=== PATIENT | female | born 1965 | race Caucasian/White ===

== ENCOUNTER 2017-05-22 05:35 | Day surgery (SDC) | payer OTHER ==
[~2017-05-22] VITALS: Ht 162.6 cm; Wt 90.7 kg
[~2017-05-22 05:35] MED LIST: ADVIL200 MG PO; ALIVE WOMEN'S1 EACH PO; BUPROPION XL300 MG PO; BUTALB-ACETAMI1 EAC2 PO; BUTALB-ACETAMI1 EACH PO; CALCIUM600 MG PO; CAMRESE 0.15-01 EACH PO; CYCLOBENZAPRINE10 MG PO; ENOXAPARIN100 MG/1 M SUB-Q; ESCITALOPRAM OXA5 MG PO; FLUTICASONE P15.8 ML NAS; IBUPROFEN800 MG PO; NORCO 5-325 TA1 EACH PO; PSEUDOEPHEDRINE30 MG PO; ST. JOHN'S WOR300 MG PO; TRIAMCINOLONE A15 G3 TOP; VITAMIN B-12100 MCG PO; VITAMIN B122500 MCG PO; VITAMIN D2000 UNI1 PO; WARFARIN SODIUM5 MG PO; WELLBUTRIN XL300 MG PO
--- NOTE | 2017-05-22 08:14 | NUR ---
05/22/17 0814 Kathrine Ware 0808 ALERT AND TEARFUL. DENIES PAIN OR NAUSEA. RESP EVEN UNLABORED.
--- NOTE | 2017-05-22 08:44 | NUR ---
PT IS BACK TO DS FROM PACU. PT REPORTS FEELING HORRIBLE, REPORTING THE PAIN IS VERY UNCOMFORTALE, SHE STATES SHE HAS A HEADACHE. PT HAS WATER AND CRACKERS AT THE BEDSIDE. CALL LIGHT WITHIN REACH. NO OTHER C/O'S AT THIS TIME. WILL REASSESS WITHIN THE HOUR.
--- NOTE | 2017-05-22 08:45 | NUR ---
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
[2017-05-22] MEDS ORDERED: PERCOCET 5-3251 EACH PO (09:05)
[2017-05-22] MEDS ORDERED: ZOFRAN ODT4 MG PO (09:05)
--- NOTE | 2017-05-22 09:38 | NUR ---
PT STILL C/O HEADACHE AND ABDOMEN PAIN. PT ENCOURAGED TO TAKE A NAP. PT GIVEN PAIN MEDICATION AND ZOFRAN. FAMILY IS AT THE BEDSIDE. NO OTHER C/O'S AT THIS TIME. CALL LIGHT WITHIN THE REACH. WILL REASSESS WITHIN THE HOUR.
--- NOTE | 2017-05-22 10:34 | NUR ---
MET WITH PT'S VANITA. HE WAS WAITING OUT IN THE HALLWAY WITH QUITE A FEW FAMILY AND FRIENDS. HE WAS SOMEWHAT ANXIOUS, WAITING FOR THE DR. I EXPLAINED HOW THE PROCESS WORKS, HE THANKED ME. HE CONTINUED TO PACE THE OCONNELL, AND THEN TOLD ME SHE IS BACK IN HER ROOM. HE SEEMED MORE RELIEVED. I WILL CONTINUE TO FOLLOW
--- NOTE | 2017-05-22 11:00 | NUR ---
SWAPNIL 1035: PT UP OOB TO BATHROOM WITH STANDBY ASSIST. PT REPORTS A SLIGHT HEADACHE THAT COMES AND GOES. SHE STATES SHE IS A LITTLE NAUSEOUS, BUT WOULD REALLY LIKE TO GO HOME. PT HAS OTHERWISE MET DISCHARGE CRITIERIA. DC INSTRUCTIONS ARE GIVEN AND ALL QUESTIONS ARE ASKED AN ASWERED. PT IS GIVEN A FRESH PERIPAD AND ALLOWED TO GET DRESSED. SHE IS WHEELCHAIRED OUT TO HER CAR.
--- NOTE | 2017-05-22 16:41 | OR ---
[facility] [address], [place] [address] Signed DATE OF PROCEDURE: 05/22/17 PREOPERATIVE DIAGNOSES: Postmenopausal bleeding and history of abnormal endometrium as well as history of uterine fibroids. POSTOPERATIVE DIAGNOSES: Postmenopausal bleeding and history of abnormal endometrium as well as history of uterine fibroids. PROCEDURE: Hysteroscopy, dilation and curettage with NovaSure ablation. SURGEON: Fina Shah MD. ANESTHESIA: General endotracheal with pharyngeal mask per Wilner Cooper CRNA as well as paracervical block with 10 mL of 1% plain Lidocaine. IV FLUIDS: In 1500 mL of Crystalloid. ESTIMATED BLOOD LOSS: 25 mL. URINE OUTPUT: 50 mL per straight cath. FINDINGS: Mildly enlarged uterus with fluffy-appearing endometrium. No polyps visualized. PATHOLOGY: Endometrial curettings. COMPLICATIONS: No complications. PROCEDURE TECHNIQUE: The patient was taken to the operating room with IV fluids running. She was placed on the operating table in supine position, underwent rapid sequence intubation and IV sedation with pharyngeal mask/general endotracheal anesthesia. The patient was then repositioned into dorsal lithotomy position with Darek stirrups. Exam under anesthesia was performed. Uterus was difficult to palpate due to body habitus, but no obvious masses or lesions. The patient was then prepped and draped in normal sterile fashion and a weighted speculum was placed into the vagina. The patient was placed in Trendelenburg position and a single-tooth tenaculum placed on the anterior lip of the cervix. The uterus then sounded to approximately 9 cm and serial dilation was performed. Hysteroscope was then Electronically Signed By: FINA SHAH MD 05/22/17 1641 PATIENT NAME: LUCA CASTAÑEDA OPERATIVE REPORT DATE OF : 65 PHYSICIAN: FINA SHAH MD REPORT #: [id number] REPORT IS CONFIDENTIAL AND NOT TO BE RELEASED WITHOUT AUTHORIZATION [facility] [address] [place] [id number] Signed placed easily and visualization of the uterine cavity was achieved without any problem. Findings were again mildly fluffy-appearing endometrium, no obvious polyps. The hysteroscope was then removed and curettage was performed. Endometrial curettings were sent to Pathology. The NovaSure wand was then placed after again sounding the uterus and the cervix was approximately 2 cm in length, the uterine cavity approximately 7 cm with the uterine cavity after placing the NovaSure wand was 3.5 cm and the procedure itself took approximately 90 seconds. There was no complication. The NovaSure wand appeared charred as would be appropriate and it was removed easily. The single-tooth tenaculum was removed and cervix was hemostatic. The patient was extubated, awakened and went to recovery room in stable condition. Sponge and instrument counts were all correct. Again, there were no complications. MD NATHAN Finch/Davida /[id number] cc: Ese Marks PA-C Electronically Signed By: FINA SHAH MD 05/22/17 1641 PATIENT NAME: LUCA CASTAÑEDA OPERATIVE REPORT DATE OF : 65 PHYSICIAN: FINA SHAH MD REPORT #: [id number] REPORT IS CONFIDENTIAL AND NOT TO BE RELEASED WITHOUT AUTHORIZATION
== END 2017-05-22 10:45 | disposition home or self-care (01) ==
LOC: DS 05:35
PROVIDERS: Obstetrics & Gynecology
PROC: 0U5B8ZZ Destruction of Endometrium, Via Natural or Artificial Opening Endoscopic (ICD-10-PCS; principal; 2017-05-22 06:45)
DX: N95.0 Postmenopausal bleeding (principal); Z79.52 Long term (current) use of systemic steroids; Z79.01 Long term (current) use of anticoagulants; Z79.899 Other long term (current) drug therapy; Z98.890 Other specified postprocedural states; Z90.49 Acquired absence of other specified parts of digestive tract; Z87.891 Personal history of nicotine dependence
CPT/HCPCS: 00952; J1100; J1644; J1885; J2250; J2405; J2704; J2765; J3010; J7120

== ENCOUNTER 2017-11-05 16:34 | Emergency (ER) | payer OTHER ==
[~2017-11-05] VITALS: Ht 160 cm; Wt 94.3 kg
[~2017-11-05 16:34] MED LIST changes: +PERCOCET 5-3251 EACH PO; +ZOFRAN ODT4 MG PO
[2017-11-05] MEDS ORDERED: LEXAPRO10 MG PO (18:41)
== END 2017-11-05 19:27 | disposition home or self-care (01) ==
LOC: ED 16:34
DX: J06.9 Acute upper respiratory infection, unspecified (principal); Z79.899 Other long term (current) drug therapy
CPT/HCPCS: 99282

== ENCOUNTER 2018-05-01 07:55 | Day surgery (SDC) | payer OTHER ==
[~2018-05-01] VITALS: Ht 160 cm; Wt 98.0 kg
--- NOTE | ~2018-05-01 | OR ---
[facility] [address] [place], [place] [address] Draft DATE OF OPERATION: 05/01/2018 SURGEON: Fausto Kilpatrick MD PREOPERATIVE DIAGNOSIS: Chronic sinusitis with septal deformity. POSTOPERATIVE DIAGNOSIS: Chronic sinusitis with septal deformity. PROCEDURE: Septoplasty, bilateral intranasal ethmoidectomy. ANESTHESIA: General LMA, INSTRUCTOR OF NURSING, Beverly Ge. PREOPERATIVE HISTORY: Ms. Torres is a 53-year-old lady with chronic sinus infections, septal deformity, unresponsive to appropriate medications. CAT scan preop has shown opacification of the ethmoids and maxillary sinuses and confirmed a septal deformity. She is taken to the operating room for the above-mentioned procedures. OPERATIVE PROCEDURE AND FINDINGS: After informed consent, the patient was taken to the operating room, placed in supine position where general LMA anesthesia was induced. The patient and procedure were verified. The patient was repositioned. Preop CT was viewed throughout. The patient received preoperative intravenous Ancef and intranasal oxymetazoline. Headlight speculum exam of the nasal cavity showed a significant septal deformity on the left side obstructing the middle meatus. Septal mucosa was injected with 1% lidocaine with epi. The deviated septal cartilage and bone were then excised with Norma. Access to the left middle meatus was improved in this manner. The left nasal cavity was then approached. The middle turbinate was medialized. Ethmoid bulla was taken down with the Norma. Anterior ethmoid air cells were opened. Posterior ethmoid air cells opened also per CT review. Middle meatal antrostomy was made with a curving ring curette. Purulence was obtained from the maxillary sinus. The antrostomy was opened widely with the Norma. Sinus was curetted out. There was polypoid mucosa and sinuses throughout. Minimal bleeding. The same procedure, same findings on the right side. Packing was then placed. A Flores pack was coated with Neosporin in the middle meatus, one on each side. A trimmed Merocel PATIENT NAME: LUCA TORRES OPERATIVE REPORT DATE OF : 65 REPORT #: [id number] PHYSICIAN: FAUSTO KILPATRICK MD PCP: SUZANNA JACOB PAC REPORT IS CONFIDENTIAL AND NOT TO BE RELEASED WITHOUT AUTHORIZATION [facility] [address] [place] [address] Draft pack in the nasal cavity, one on each side coated with Neosporin, tied anteriorly over a pad. The pharynx was suctioned clear of blood secretions. Hemostasis was verified. The patient was then awakened, extubated, transported to recovery room in good condition. No complications. BLOOD LOSS: Minimal. SPECIMEN: To pathology left and right sinus contents separately. DRAINS: No drains. PACKING: Two pieces of Merocel each nostril. COMPLICATIONS: No complications. Fausto Kilpatrick MD GC/MARGOT /[id number] Copies: ~ PATIENT NAME: LUCA TORRES OPERATIVE REPORT DATE OF : 65 REPORT #: [id number] PHYSICIAN: FAUSTO KILPATRICK MD PCP: SUZANNA JACOB PAC REPORT IS CONFIDENTIAL AND NOT TO BE RELEASED WITHOUT AUTHORIZATION
[~2018-05-01 07:55] MED LIST changes: +AMOXICILLIN500 MG PO; +FLORICAL CAPSU1 EACH PO; +IBU800 MG PO; +LEXAPRO10 MG PO; +ZYRTEC10 M3 PO
--- NOTE | 2018-05-01 12:05 | NUR ---
05/01/18 1205 Aleida Montana 1200 PATIENT ARRIVES TO PACU UNRESPONSIVE TO PAINFUL STIMULI. RESP EVEN AND UNLABORED, MASK AT 8 LITERS. 1202 PATIENT WAKING UP CRYING, C/O NAUSEA AND BURNING PAIN. GRABBING AT MASK. ENCOURAGED PATIENT NOT TO GRAB AT NOSE. MASK REMOVED, ROOM AIR SATS 96%.
--- NOTE | 2018-05-01 13:05 | NUR ---
PATIENT BACK IN DAY SURGERY ROOM FROM PACU. DROWSY, BUT EASILY AWAKENS TO VOICE. UNABLE TO RATE PAIN. SHE STATES SHE DOESN'T FEEL GOOD. O2 SAT DOWN TO 89% ON ROOM AIR. NASAL CANNULA PLACED IN MOUTH AT 2 L/MIN. O2 SAT UP TO 98% ONCE NASAL CANNULA PLACED IN MOUTH. NASAL PACKING IN PLACE WITH SMALL AMOUNT OF RED DRAINAGE SEEN. SCDs ON. IV SITE WNL. FAMILY AT BEDSIDE. ICE WATER PLACED AT BEDSIDE. OFFERED PATIENT SOMETHING TO EAT SO SHE CAN TAKE PAIN PILLS, PATIENT DECLINED SOMETHING TO EAT AT THIS TIME.
[2018-05-01] MEDS ORDERED: NORCO 5-325 TA1 EACH PO (15:02)
--- NOTE | 2018-05-01 16:04 | NUR ---
1500: PATIENT ASSISTED OOB AND TO BATHROOM. GAIT STEADY. PATIENT STATES READY TO GO HOME. GETTING DRESSED NOW. 1525: DISCHARGE INSTRUCTIONS GIVEN TO PATIENT AND FAMILY. IV DC'D WNL. TIP INTACT. DRESSING APPLIED. PATIENT DISCHARGED TO HOME WITH FAMILY VIA WHEELCHAIR.
== END 2018-05-01 15:25 | disposition home or self-care (01) ==
LOC: DS 07:55 → OPS 07:55
PROVIDERS: Otolaryngology
PROC: 09TU0ZZ Resection of Right Ethmoid Sinus, Open Approach (ICD-10-PCS; 2018-05-01)
PROC: 09SM0ZZ Reposition Nasal Septum, Open Approach (ICD-10-PCS; principal; 2018-05-01 09:15)
PROC: 09TV0ZZ Resection of Left Ethmoid Sinus, Open Approach (ICD-10-PCS; 2018-05-01 09:15)
DX: J32.9 Chronic sinusitis, unspecified (principal); J34.2 Deviated nasal septum; J34.3 Hypertrophy of nasal turbinates; J30.9 Allergic rhinitis, unspecified; F32.9 Major depressive disorder, single episode, unspecified; E66.9 Obesity, unspecified; E78.00 Pure hypercholesterolemia, unspecified; Z79.899 Other long term (current) drug therapy; Z79.2 Long term (current) use of antibiotics; Z68.38 Body mass index [BMI] 38.0-38.9, adult
CPT/HCPCS: 00160; J0690; J1100; J2250; J2270; J2405; J2550; J3010; J7120

== ENCOUNTER 2019-01-20 13:05 | Emergency (ER) | payer OTHER ==
[~2019-01-20] VITALS: Ht 160 cm; Wt 98.4 kg
--- OUTSIDE RECORDS SUMMARY | ~2019-01-20 | XMS | Clinical Summary ---
Demographics + + + | Address | [address] [place] [address] | | | [place] [address] | + + + | Home Phone | | + + + | Preferred Language | Unknown | + + + | Marital Status | | + + + | Protestant Affiliation | 1038 | + + + | Race | Unknown | + + + | Ethnic Group | Unknown | + + + Author + + + | Author | [facility] | | | and [place] | + + + | Organization | [facility] | | | and [place] | + + + | Address | Unknown | + + + | Phone | Unavailable | + + + Support + + +---------+ + | Name | Relationship | Address | Phone | + + +---------+ + | Luz Tadeo | ECON | Unknown | | + + +---------+ + | Marlene Tadeo | ECON | Unknown | | + + +---------+ + Care Team Providers + +------+ + | Care Rehabilitation Program Manager Name | Role | Phone | + +------+ + | Amita Cardona PA-C | PP | | + +------+ + Allergies No Known Allergies Medications + + + +---------+------+------+-------+ | Medication | Sig | Dispensed | Refills | Star | End | Statu | | | | | | t | Date | s | | | | | | Date | | | + + + +---------+------+------+-------+ | cholecalciferol | Take 2,000 Units by | | 0 | | | Activ | | (VITAMIN D-3) 2000 | mouth Daily. | | | | | e | | UNITS TABS | | | | | | | + + + +---------+------+------+-------+ | enoxaparin | Inject 100 mg under | | 0 | | | Activ | | (LOVENOX) 100 mg/mL | the skin every 12 | | | | | e | | injection | hours. | | | | | | + + + +---------+------+------+-------+ | escitalopram | Take 5 mg by mouth | | 0 | | | Activ | | (LEXAPRO) 5 MG | Daily. | | | | | e | | tablet | | | | | | | + + + +---------+------+------+-------+ | Ibuprofen ([facility] | Take 200 mg by mouth | | 0 | | | Activ | | IBUPROFEN) 200 MG | as needed. | | | | | e | | CAPS | | | | | | | + + + +---------+------+------+-------+ | | Take 1 capsule by | | 0 | | | Activ | | butalbital-acetamino | mouth every 4 hours | | | | | e | | czpd-kbqfxczn-jfoexk | as needed for | | | | | | | e (FIORICET/CODEINE) | Headaches. | | | | | | | 37-893-21-30 MG per | | | | | | | | capsule | | | | | | | + + + +---------+------+------+-------+ | warfarin | Take 10 mg by mouth | | 0 | | | Activ | | (COUMADIN) 5 mg | Daily. | | | | | e | | tablet | | | | | | | + + + +---------+------+------+-------+ Active Problems + + + | Problem | Noted Date | + + + | PAIN IN SOFT TISSUES OF LIMB | 11/09/2011 | + + + | Venous embolism and thrombosis of deep vessels of lower extremity | | + + + | DVT (deep venous thrombosis) | | + + + Family History Patient is adopted + + +------+ + | Medical History | Relation | Name | Comments | + + +------+ + | Cancer | Mother | | leukemia | + + +------+ + + +------+--------+ + | Relation | Name | Status | Comments | + +------+--------+ + | Mother | | | | + +------+--------+ + Social History + +-------+ +--------+------+ | Tobacco Use | Types | Packs/Day | Years | Date | | | | | Used | | + +-------+ +--------+------+ | Former Smoker | | | | | + +-------+ +--------+------+ + + +---------+ + | Alcohol Use | Drinks/We | oz/Week | Comments | | | ek | | | + + +---------+ + | No | | | | + + +---------+ + + + + | Sex Assigned at | Date Recorded | | | | + + + | Not on file | | + + + + + + + | Job Start Date | Occupation | Industry | + + + + | Not on file | Not on file | Not on file | + + + + + + + + | Travel History | Travel Start | Travel End | + + + + + + | No recent travel history available. | + + Last Filed Vital Signs + + + + | Vital Sign | Reading | Time Taken | + + + + | Blood Pressure | 110/68 | 01/14/20150 PDT | + + + + | Pulse | 65 | 01/14/20151029 PDT | + + + + | Temperature | 36.4 C (97.6 F) | 01/14/20151029 PDT | + + + + | Respiratory Rate | 14 | 01/14/20150 PDT | + + + + | Oxygen Saturation | 96% | 01/14/20151029 PDT | + + + + | Inhaled Oxygen | - | - | | Concentration | | | + + + + | Weight | 92.1 kg (203 lb 1.6 | 01/14/20151029 PDT | | | oz) | | + + + + | Height | 160 cm (5' 3") | 01/14/20151029 PDT | + + + + | Body Mass Index | 35.98 | 01/14/20151029 PDT | + + + + Plan of Treatment + + + + + | Health Maintenance | Due Date | Last Done | Comments | + + + + + | Vaccine: | | | | | Dtap/Tdap/Td (1 - | 4 | | | | Tdap) | | | | + + + + + | Cervical Cancer | | | | | Screening (Pap) | 5 | | | + + + + + | Vaccine: Zoster (1 | | | | | of 2) | 5 | | | + + + + + | Vaccine: Influenza | | | | | (Season Ended) | 9 | | | + + + + + Results Not on filefrom Last 3 Months Insurance +-------+--------+ +--------+ + +------+ | Payer | Benefi | Subscriber | Effect | Phone | Address | Type | | | t Plan | ID | eyad | | | | | | / | | Dates | | | | | | Group | | | | | | +-------+--------+ +--------+ + +------+ | MODA | MODA | [id number] | | [phone] | [address] | PPO | | | [employer] | | [phone] [id number] | | | | [place] | | esent | | [place], | | | | [place] | | | | [place] [address] | | +-------+--------+ +--------+ + +------+ + +--------+ +--------+ + + | Guarantor Name | Accoun | Relation to | Date | Phone | Billing Address | | | t Type | Patient | of | | | | | | | | | | + +--------+ +--------+ + + | Karine Torres | Person | Self | [birth year] | [address] | | [place] | al/[place]hinde | | 1965 | [phone] | [place] [address] | | | [place] | | | 0 (Home) | | + +--------+ +--------+ + + Advance Directives Patient has advance care planning documents on file. For more information, please contact:[facility] [place] [address]
--- OUTSIDE RECORDS SUMMARY | ~2019-01-20 | XMS | Clinical Summary ---
Demographics + + + | Address | [address] [place] [address] | | | [place] [address] | + + + | Home Phone | | + + + | Preferred Language | Unknown | + + + | Marital Status | | + + + | Orthodoxy Affiliation | 1038 | + + + | Race | Unknown | + + + | Ethnic Group | Unknown | + + + Author + + + | Author | [facility] | | | and [place] | + + + | Organization | [facility] | | | and [place] [...] Team Providers + +------+ + | Care Maintenance Scheduler Name | Role | Phone | + [...] | | | | e | | qkxu-iznnfzkd-jskign | as needed for | | | | | | | e (FIORICET/CODEINE) | Headaches. | | | | | | | [id number] MG per | | | | | [...] + +------+ | MODA | MODA | [id number] | | [phone] | [address] | PPO | | | [place] | | [address] | [phone] | | | | [place] | | esent | | [place], | | | | [place] | | | | [place] [address] | | +-------+--------+ +--------+ + +------+ + +--------+ +--------+ + + | Guarantor Name | Accoun | Relation to | Date | Phone | Billing Address | | | t Type | Patient | of | | | | | | | | | | + +--------+ +--------+ + + | Karine Torres | Person | Self | [birth year] | [address] | | [place] | al/[place]hind[place] | | 1965 | [phone] | [place] [address] | | | [place] | | | 0 (Home) | | + +--------+ +--------+ + + Advance Directives Patient has advance care planning documents on file. For more information, please contact:[facility] [address]
[2019-01-20] MEDS ORDERED: VALTREX1000 MG PO (16:49)
[2019-01-20] MEDS ORDERED: NEURONTIN300 MG PO (16:49)
== END 2019-01-20 16:55 | disposition home or self-care (01) ==
LOC: ED 13:05
DX: B02.9 Zoster without complications (principal); Z79.899 Other long term (current) drug therapy; Z90.49 Acquired absence of other specified parts of digestive tract
CPT/HCPCS: 99282

== ENCOUNTER 2019-05-30 18:59 | Emergency (ER) | payer OTHER ==
[~2019-05-30] VITALS: Ht 160 cm; Wt 98.4 kg
--- OUTSIDE RECORDS SUMMARY | ~2019-05-30 | XMS | Clinical Summary ---
Demographics + + + | Address | [address] [place] [address] | | | [place] [address] | + + + | Home Phone | | + + + | Preferred Language | Unknown | + + + | Marital Status | | + + + | Congregational Affiliation | 1038 | + + + | Race | Unknown | + + + | Ethnic Group | Unknown | + + + Author + + + | Author | [facility] | | | and [place] | + + + | Organization | [facility] | | | and [place] | [...] Team Providers + +------+ + | Care Weaving Teacher Name | Role | Phone | + +------+ + | Amita Cardona PA-C | PCP | | + +------+ + Allergies No [...] | | | | e | | qndc-nfbrzven-fqqaer | as needed for | | | | | | | e (FIORICET/CODEINE) | Headaches. | | | | | | | [id number] MG per | | | | | [...] Vaccine: Influenza | | | | | (#1) | 9 | | | + + [...] + +------+ | MODA | MODA | [id number] | | [phone] | [address] | PPO | | | [place] | | [address] | [address] | [id number] | | | | [place] | | esent | | [place], | | | | [place] | | | | [place] [address] | | +-------+--------+ +--------+ + +------+ + +--------+ +--------+ + + | Guarantor Name | Accoun | Relation to | Date | Phone | Billing Address | | | t Type | Patient | of | | | | | | | | | | + +--------+ +--------+ + + | Karine Torres | Person | Self | [birth year] | [address] | | [place] | al/[place]hind[place] | | 1965 | [phone] | [place] [address] | | | [place] | | | 0 (Home) | | + +--------+ +--------+ + + Advance Directives Patient has advance care planning documents on file. For more information, please contact:[facility] [place] [address]
--- OUTSIDE RECORDS SUMMARY | ~2019-05-30 | XMS | Clinical Summary ---
Demographics + + + | Address | [address] [place] [address] | | | [place] [address] | + + + | Home Phone | | + + + | Preferred Language | Unknown | + + + | Marital Status | | + + + | Anabaptism Affiliation | 1038 | + + + | Race | Unknown | + + + | Ethnic Group | Unknown | + + + Author + + + | Author | [facility] | | | and [place] | + + + | Organization | [facility] | | | and [place] | [...] Team Providers + +------+ + | Care Painter Interior Finish Name | Role | Phone | + [...] | | | | e | | pvoe-boqeoumd-pqbhzy | as needed for | | | | | | | e (FIORICET/CODEINE) | Headaches. | | | | | | | [id number] MG per | | | | | [...] + +------+ | MODA | MODA | [id number] | | [phone] | [address] | PPO | | | [place] | | [address] | [address] | [id number] | | | | [place] | | esent | | [place], | | | | [place] | | | | [place] [address] | | +-------+--------+ +--------+ + +------+ + +--------+ +--------+ + + | Guarantor Name | Accoun | Relation to | Date | Phone | Billing Address | | | t Type | Patient | of | | | | | | | | | | + +--------+ +--------+ + + | Karine Torres | Person | Self | [birth year] | [address] | | [place] | al/[place] | | 1965 | [phone] | [place] [address] | | | [place] | | | 0 (Home) | | + +--------+ +--------+ + + Advance Directives Patient has advance care planning documents on file. For more information, please contact:[facility] [place] [address]
[~2019-05-30 18:59] MED LIST changes: +NEURONTIN300 MG PO; +VALTREX1000 MG PO
[2019-05-30] MEDS ORDERED: NORCO 5-325 TA1 EACH PO (22:12)
== END 2019-05-30 22:36 | disposition home or self-care (01) ==
LOC: ED 18:59
DX: S20.221A Contusion of right back wall of thorax, initial encounter (principal); W22.8XXA Striking against or struck by other objects, initial encounter; G43.909 Migraine, unspecified, not intractable, without status migrainosus; Z79.899 Other long term (current) drug therapy
CPT/HCPCS: 71101; 72080; 81001; 99283-25

== ENCOUNTER 2020-12-22 16:05 | Observation (INO) | payer OTHER ==
[~2020-12-22] VITALS: Ht 160 cm; Wt 104.7 kg
[2020-12-22] MEDS ORDERED: ZYRTEC10 M3 PO (18:12)
[2020-12-22] MEDS ORDERED: SINGULAIR10 MG PO (18:12)
[2020-12-22] MEDS ORDERED: BIOTIN1 M1 PO (18:13)
--- NOTE | 2020-12-22 19:45 | NUR ---
PT ADMITTED TO ROOM 123 FROM ED, ACCOMPAINED BY . SELF TRANSFERED FROM STRETCHER TO BED. RA, A/O; ABX INFUSING, STARTED IN THE ED. ADMISSION PROCESS TO BE COMPLETED.
--- NOTE | 2020-12-22 20:05 | NUR ---
PATIENTS ADMISSION COMPLETED BY GENEVA RODRIGUES. ADMISSION ASSESEMENT COMPLETED. PATIENT DENIES ANY PAIN OR NAUSEA. EDUCATION PROVIDED ABOUT CHOLY AND ALL QUESTIONS ANSWERED. IS PRESENT IN THE ROOM. PATIENT ORIENTED TO ROOM, CALL LIGHT AND FLOOR. NO FURTHER NEEDS NOTED. CALL LIGHT IN REACH.
--- NOTE | 2020-12-22 23:12 | NUR ---
PATIENT ASSISTED TO THE RESTROOM A SBA TO THE RESTROOM. PATIENT WAS ABLE TO VOID. PATIENT IS BACK IN BED RESTING. PATIENT DENIES ANY PAIN OR NAUSEA. NO FURTHER NEEDS NOTED. CALL LIGHT IN REACH.
--- NOTE | 2020-12-23 02:26 | NUR ---
PATIENTS VITALS TAKEN AND RECORDED. INTAKE AND OUPUT RECORDED. PATIENT DENIES ANY PAIN OR NAUSEA. PATIENT DENIES ANY NEEDS. CALL LIGHT IN REACH. IV INFUSING PER ORDER.
--- NOTE | 2020-12-23 05:58 | NUR ---
PT UP TO BR, SBA. SET UP FOR SHOWER, WANTS TO WAIT UNTIL CLOSER TO PROCEDURE TIME. PT BRUSHED TEETH. VS AND I/OS DONE.
--- NOTE | 2020-12-23 05:59 | NUR ---
PATIENTS VITALS TAKEN AND RECORDED. INTAKE AND OUPUT RECORDED. MD IN ROOM TO SEE PATIENT. PATIENT IS TO HAVE SURGERY LATER THIS DAY. ALL QUESTIONS ANSWERED. PATIENT IS UP TO THE RESTROOM. ORAL CARE COMPLETED BY PATIENT. PATIENT DENIES ANY PAIN OR NAUSEA. NO FURTHER NEEDS NOTED. CALL LIGHT IN REACH.
--- NOTE | 2020-12-23 06:03 | NUR ---
PATIENT HAS RESTED ON AND OFF SINCE ARRIVAL. PATIENT IS NPO AT THIS TIME. PATIENT HAS DENIED PAIN OR NAUSEA. PATIENT IS ON RA. PATIENT IS A SBA. IV INFUSING PER ORDER.
--- NOTE | 2020-12-23 07:07 | NUR ---
Report from Camilla Gilman RN. Patient awake in room. Denies needs at this time. States spouse will be in after kids are taken to school. Call light in reach, bed rails up X2.
--- NOTE | 2020-12-23 07:20 | CONS ---
[facility] [address], [place] [address] Signed DATE OF CONSULTATION: 12/23/2020 CHIEF COMPLAINT: Right upper quadrant abdominal pain. HISTORY OF PRESENT ILLNESS: Karine is a 55-year-old obese female, who developed rather significant right upper quadrant abdominal pain radiating through to her back. She had nausea and vomiting. She came to emergency room for evaluation. Laboratory work was unremarkable, but the ultrasound showed a 3.4 cm stone impacted in the neck of her gallbladder. The gallbladder wall is not thickened. The common bile ducts not dilated and she had a positive Livingston's sign. I have been asked to admit her as a general surgeon on-call. She was given Rocephin and Flagyl along with Lovenox. She has been hydrated and done well overnight and feels much better this morning. PAST MEDICAL HISTORY: Menopause, DVT of left lower extremity in 2013, migraine headaches, varicose veins, and depression. PAST SURGICAL HISTORY: Includes a x1, open appendectomy, D and C x2, sclerotherapy of the left lower extremity, varicose veins in 2014. SOCIAL HISTORY: She does not smoke or drink. She is and has 2 grown children and 1 adopted. Her daughter is Deirdre Castillo at [phone]. 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 Suzanna Marks is her primary care provider. She prefers the [facility]. FAMILY HISTORY: She is adopted, but knows her biologic mother had leukemia. REVIEW OF SYSTEMS: She had 10 systems reviewed and there were no new additions. ALLERGIES: Gluten, but no known drug allergies. MEDICATIONS: Vitamin D, calcium, Lexapro, ibuprofen, , Singulair, Zyrtec, and Biotin. PHYSICAL EXAMINATION: VITAL SIGNS: Her blood pressure is 126/66, heart rate 75, respiratory rate 18, her temperature is 97.5. She is 97% on room air. She is 5 feet 3 inches at 104 kg. Electronically Signed By: ISAC SWAN MD 12/23/20 0720 PATIENT NAME: KARINE CASTAÑEDA CONSULTATION DATE OF : 65 REPORT #: [id number] PHYSICIAN: ISAC SWAN MD PCP: SUZANNA MARKS PAC REPORT IS CONFIDENTIAL AND NOT TO BE RELEASED WITHOUT AUTHORIZATION [facility] [address] [place] [id number] Signed GENERAL: Karine is a 55-year-old obese female, who looks slightly older than her stated age. She is not systemically ill or toxic. LUNGS: Clear to auscultation bilaterally. HEART: Regular rate and rhythm without murmurs. ABDOMEN: Obese, but soft, very minimal tenderness in the right upper quadrant this morning. LABORATORY DATA: Her white blood count is 9.1, hemoglobin 13, neutrophils 61, BUN 14, creatinine 0.58. COVID was negative. Urinalysis negative. Total bilirubin 0.3, AST 16, ALT 19, alkaline phosphatase 74, albumin is 4.3, lipase is 27. RADIOGRAPHIC STUDIES: Ultrasound shows a fatty liver with a 3.4 cm stone impacted in the neck of the gallbladder. The gallbladder wall is not thickened at 2 mm. Common bile duct is unremarkable at 4 mm. She had a positive Livingston's sign. ASSESSMENT/PLAN: Karine is a 55-year-old obese female with a symptomatic large impacted stone in the neck of her gallbladder. I gave her a booklet on the gallbladder. We reviewed the location of function of the gallbladder. We discussed the idea that any stone over 2.54 cm associated with an increased risk of gallbladder cancer. We have also discussed the idea of common bile duct stones and ERCP. She understands laparoscopic versus open cholecystectomy. There is risk including, but not limited to bleeding, infection, scarring, change in contour of the skin, damage to bowel, damage to main bile duct, incisional hernias and other unforeseen comorbidities including a DVT. She has expressed understanding and would like to proceed. We added to our schedule for later today. Isac Swan MD [facility]/MODL /[id number] cc: MD Suzanna Rueda PA-C Electronically Signed By: ISAC SWAN MD 12/23/20 0720 PATIENT NAME: KARINE CASTAÑEDA CONSULTATION DATE OF : 65 REPORT #: [id number] PHYSICIAN: ISAC SWAN MD PCP: SUZANNA MARKS PAC REPORT IS CONFIDENTIAL AND NOT TO BE RELEASED WITHOUT AUTHORIZATION [address] [address] Signed Copies: ISAC SWAN MD, ERIKA PAC ~ Electronically Signed By: ISAC SWAN MD 12/23/20 0720 PATIENT NAME: KARINE CASTAÑEDA CONSULTATION DATE OF : 65 REPORT #: [id number] PHYSICIAN: ISAC SWAN MD PCP: SUZANNA MARKS REPORT IS CONFIDENTIAL AND NOT TO BE RELEASED WITHOUT AUTHORIZATION
--- NOTE | 2020-12-23 08:47 | NUR ---
ASSESSMENT COMPLETED. AM MEDICATIONS ADMINISTERED PRESCRIBED. DENIES PAIN AT THIS TIME. DENIES OTHER NEEDS. DOES STATE SHE HAS A SMALL HEADACHE, BUT FEELS IT IS LIKELY LACK OF CAFFEINE CAUSING IT. CALL LIGHT IN REACH, BED RAILS UP X2.
--- NOTE | 2020-12-23 10:33 | NUR ---
PATEINT AWAKE AT SIDE OF BED, IN ROOM. VITALS AND I&OS CHARTED, PATIENT SET UP FOR SHOWER, NO OTHER NEEDS AT THIS TIME
--- NOTE | 2020-12-23 13:56 | NUR ---
PT ALERT, ORIENTED AND SITTING ON SIDE OF BED VISITING WITH VANITA. PT FEELS INFORMED, WAITING FOR SURGERY LATER TODAY. GAVE ENCOURAGEMENT, PT REQUESTED PRAYER. WILL FOLLOW NEEDED
[2020-12-23] MEDS ORDERED: FLOVENT HFA10.6 GM INH (14:25)
[2020-12-23] MEDS ORDERED: ATORVASTATIN CA20 MG PO (14:27)
[2020-12-23] MEDS ORDERED: ESCITALOPRAM OX20 MG PO (14:27)
[2020-12-23] MEDS ORDERED: IBUPROFEN800 MG PO (14:28)
[2020-12-23] MEDS ORDERED: BUTALB-ACETAMI1 EAC2 PO (14:30)
[2020-12-23] MEDS ORDERED: SUDOGEST30 MG PO (14:31)
--- NOTE | 2020-12-23 14:40 | NUR ---
Taken to surgery on cart with surgery nurse.
--- NOTE | 2020-12-23 15:42 | NUR ---
Pt out of room for surgery. Will see tomorrow.
--- NOTE | 2020-12-23 17:03 | NUR ---
12/23/20 1703 Hawa Maldonado 4913-PATIENT ARRIVED TO PACU ON 10L MASK NONAROUSABLE. RR EVEN. RN DOING JAW THRUST TO MAINTAIN OPEN AIRWAY. 3 LAP SITES CDI WITH GAUZE AND ICE APPLIED. IVF INFUSING. SR.
--- NOTE | 2020-12-23 18:01 | NUR ---
ARRIVES VIA BED FROM PACU WITH PACU STAFF. LETHARGIC. STATES NOT FEELING WELL. NODS WHEN ASKED IF NAUSEATED OR IN PAIN. DOES NOT RATE PAIN WHEN ASKED. KEEPS HANDS NEAR FACE, COVERING MOUTH. INCISIONS ASSESSED, DRESSINGS COVERING LAP SITES REMAIN CLEAN, DRY AND INTACT. SCD'S IN PLACE. O2 ON AT ARRIVAL, DECREASED TO 1L/MIN WHEN SATS NOTED TO BE 98% ON 2L/MIN PER NC. PRESCRIPTION PROVIDED TO SPOUSE SO HE MAY GET THEM FILLED PRIOR TO DC IF PATIENT MEETS CRITERIA.
--- NOTE | 2020-12-23 18:59 | NUR ---
MINIMAL SHADOWING TO DRESSING RUQ OF ABDOMEN. OTHER 2 LAP SITE DRESSINGS ARE CLEAN, DRY AND INTACT. PAIN AND NAUSEA HAVE BOTH SLIGHTLY IMPROVED. SPOUSE REMAINS AT BEDSIDE.
--- NOTE | 2020-12-23 19:49 | NUR ---
RECEIVED REPORT FROM DAY SHIFT RN. PATIENT IS RESTING IN BED WITH EYES CLOSED, CPOX READINGS ARE WNL. AT THE BEDSIDE. CALL LIGHT IN [facility].
--- NOTE | 2020-12-23 20:05 | NUR ---
PATIENTS POST OP VITALS TAKEN AND RECORDED. PATIENT IS DROWSY BUT GIVES A THUMBS UP WHEN ASKING IF SHE IS HAVING PAIN OR NAUSEA. PATIENT REMAINS ON 2L VIA NC. PATIENTS HAS LEFT FOR THE EVENING. MOO LIGHT IN REACH.
--- NOTE | 2020-12-23 21:20 | NUR ---
PATIENTS VITALS TAKEN AND RECORDED. PATIENT IS NOW ON RA. PATIENT IS VERY PAINFUL. PATIENT ASSISTED TO THE BSC. PATIENT WAS ABLE TO VOID. PATIENT IS BACK IN BED RESTING. PATIENT GIVEN PRN NAUSEA. MEDICATION PER ORDER. PATIENT HAD NAUSEA WHEN UP OUT OF BED. PATIENT DENIES ANY NEED FOR NAUSEA MEDICATION AT THIS TIME. NO FURTHER NEEDS NOTED. CALL LIGHT IN REACH.
--- NOTE | 2020-12-23 23:06 | NUR ---
PATIENT ASSISTED UP TO THE BSC. PATIENT WAS ABLE TO VOID. PATIENT IS NOW BACK IN BED RESTING. PATIENT REPORTS NAUSEA. PRN NAUSEA MEDICATION PER ORDER. PATIENT REPORTS PAIN IS A DULL ACHE AND ONLY HURTS WITH MOVEMENT. PATIENT DENIES THE NEED FOR PAIN MEDICAITON AT THIS TIME. CALL LIGHT IN REACH.
--- NOTE | 2020-12-24 00:33 | NUR ---
PATIENT IS RESTING IN BED WITH EYES CLOSED, RR 16. CALL LIGHT IN REACH.
--- NOTE | 2020-12-24 02:19 | NUR ---
PATIENTS VITALS TAKEN AND RECORDED. INTAKE AND OUTPUT RECORDED. PATIENT REPORTS NAUSEA. PATIENT GIVEN PRN NAUSEA PER ORDER. PATIENT ONLY REPORTS MILD PAIN AND DENIES THE NEED FOR PAIN MEDICATION AT THIS TIME. NO FURTHER NEEDS NOTED. CALL LIGHT IN REACH.
--- NOTE | 2020-12-24 04:18 | NUR ---
PATIENT IS RESTING IN BED WITH EYES CLOSED, RR 17. CALL LIGHT IN REACH.
--- NOTE | 2020-12-24 04:30 | NUR ---
CALL LIGHT ANSWERED. SBA TO BEDSIDE COMMODE AND BACK TO BED. V/S AND I&O TAKEN AND CHARTED. WARM BLANKET PROVIDED. CALL LIGHT WITHIN REACH.
--- NOTE | 2020-12-24 04:43 | NUR ---
PATIENT ASSISTED TO THE RESTROOM BY MIXER AND BLENDER. PATIENT IS BACK IN BED RESTING. PATIENT DENIES ANY NAUSEA. PATIENT RATES PAIN AT A 5/10. PRN PAIN MEDICATION PER ORDER. PATIENT PROVIDED WITH CRACKERS PER REQUEST NO FURTHER NEEDS NOTED. CALL LIGHT IN REACH.
--- NOTE | 2020-12-24 05:56 | OR ---
[facility] [address] [place], [place] [address] Signed DATE OF OPERATION: SURGEON: Isac Swan MD PREOPERATIVE DIAGNOSIS: Acute on chronic cholecystitis, cholelithiasis. POSTOPERATIVE DIAGNOSIS: Acute on chronic cholecystitis, cholelithiasis. PROCEDURES: Laparoscopic cholecystectomy with intraoperative cholangiogram. ESTIMATED BLOOD LOSS: None. FINDINGS: The intraoperative cholangiogram was unremarkable. The gallbladder had acute on chronic inflammatory changes. It was dull in color, edematous, and chronic inflammatory changes down around the neck. INDICATIONS: Karine is a the 55-year-old female at 5 feet 3 inches and 104 kg. She has had rather significant right upper quadrant abdominal pain radiating through to her back. It was causing nausea and vomiting. She came to the emergency room for evaluation. Her laboratory work was unremarkable. The ultrasound showed it was possibly a gallstone over 3 cm in diameter impacted in the neck of her gallbladder. The gallbladder wall did not appear thickened. The common bile duct was not dilated. However, she had a positive Livingston's sign. She was admitted overnight and hydrated, and started on Rocephin and Flagyl. She was also given Lovenox with respect to her previous DVT in the past. I had met with Karine earlier this morning. I reviewed the above findings with her. I brought a brochure on the gallbladder. We went to a page by page. She understands the location and function of the gallbladder. We discussed laparoscopic versus open cholecystectomy. We also reviewed the expected intraop and postop course. She understands there is risk including, but not limited to bleeding, infection, scarring, change in contour the skin, damage to bowel damage to main bile duct, incisional hernias and other unforeseen comorbidities including the possible need for the ERCP for retained common bile duct stones. She had expressed understanding and wished to proceed. DESCRIPTION OF PROCEDURE: Electronically Signed By: ISAC SWAN MD 12/24/20 0556 PATIENT NAME: KARINE CASTAÑEDA OPERATIVE REPORT DATE OF : 65 REPORT #: [id number] PHYSICIAN: ISAC SWAN MD PCP: ESE MARKS PAC REPORT IS CONFIDENTIAL AND NOT TO BE RELEASED WITHOUT AUTHORIZATION [facility] [address] [place], [place] [address] Signed I met again with Karine in our preop area. After this, she was taken in the operating room and placed in the supine position under general endotracheal tube anesthesia. She was on preoperative antibiotics along with subcutaneous heparin. SCDs were utilized. She was prepped and draped in the usual sterile fashion. We took multiple pictures throughout for photodocumentation. We placed our trocars under direct visualization in her usual locations without difficulty. The gallbladder was grasped and elevated in the right upper quadrant. The findings were as above. We dissected out the triangle of Calot along with the cystic artery. Two clips have been placed across the cystic artery. We inserted the intraoperative cholangiocatheter into the cystic duct and performed intraoperative cholangiogram. This was unremarkable. The cystic duct stump was secured with three sequential clips. Each clip traveled clear across the with the cystic duct. The cystic artery was then divided. The gallbladder was then very carefully and slowly taken off the gallbladder bed with the help of the cautery and placed into an EndoCatch bag. We irrigated and suctioned out the right upper quadrant. We used our laparoscopic suturing device to pass 0-Vicryl suture on either side of the fascia of the subxiphoid trocar site. This was tied down to close this primarily. After this, all the gas was allowed to escape and the trocars were removed along with the gallbladder. The gallbladder had been opened on the back table by our circulating nurse for photodocumentation. We found one stone probably 12-14 mm in diameter. The others were all quite small, but all kind of impacted together into one large ball in the neck of the gallbladder. I am sure this is what the ultrasound was visualizing. We then closed the fascia at the supraumbilical trocar site with interrupted simple and [id number] 0-Vicryl sutures. Local anesthetic was then injected in all trocar sites. Each trocar site was irrigated and suctioned out until clear. The skin and dermis of each trocar site were closed with interrupted 3-0 subcuticular Monocryl sutures. Dry gauze and tape were applied to all incisions. Karine was awakened from anesthesia, extubated in the OR, and taken to recovery room in stable condition. Isac Swan MD [facility]/MODL /[id number] cc: Patient Chart Isac Sawn MD Electronically Signed By: ISAC SWAN MD 12/24/20 0556 PATIENT NAME: KARINE CASTAÑEDA OPERATIVE REPORT DATE OF : 65 REPORT #: [id number] PHYSICIAN: ISAC SWAN MD PCP: ESE MARKS REPORT IS CONFIDENTIAL AND NOT TO BE RELEASED WITHOUT AUTHORIZATION [facility] [address] [place], [place] [address] Signed Ese Marks PA-C Copies: ISAC SWAN MD, ERIKA PAC ~ Electronically Signed By: ISAC SWAN MD 12/24/20 0556 PATIENT NAME: KARINE CASTAÑEDA OPERATIVE REPORT DATE OF : 65 REPORT #: [id number] PHYSICIAN: ISAC SWAN MD PCP: ESE MARKS REPORT IS CONFIDENTIAL AND NOT TO BE RELEASED WITHOUT AUTHORIZATION
--- NOTE | 2020-12-24 06:56 | NUR ---
walked pt to br. ANA holliday in the bathroom. call light within reach. no further assistnace needed at this time.
--- NOTE | 2020-12-24 07:06 | NUR ---
Report from Camilla Gilman RN. Patient resting in bed. Call light in reach.
--- NOTE | 2020-12-24 09:28 | NUR ---
Pt ambulated to bathroom SBA, voided 650ml of clear yellow urine. Pt continues to be on IV fluids and reports a poor appetite. Pt encouraged to eat with pain medications. Pt reports no nausea or vomiting. Pt reports 7/10 RUQ abdominal pain and NORCO was given at 0846. Pt's desired pain level is 0/10 and pain medication options were discussed with pt. Pt stated that she took NORCO in the past and responded well. 1 PRN NORCO was given per pt request. Will reassess pain at 1 hour. Will continue to monitor.
--- NOTE | 2020-12-24 10:02 | NUR ---
Abdominal pain improving. States she still has a headache. See EMAR> Denies other needs. Informed patient staff will be back in around 1100 this AM to ambulate with her in the hallway. Verbalizes understanding.
--- NOTE | 2020-12-24 12:23 | NUR ---
Spoke to Dr. Rueda regarding patient headache not resolving and patient has met criteria. Dr. Rueda states patient may be discharged and may take her home medications for her migraine after discharge. Patient informed.
--- NOTE | 2020-12-24 12:45 | NUR ---
Patient discharge instructions given to patient. Prescriptions filled by spouse last night. Verbalizes understanding. Call light in reach. Spouse in room. Dressings removed from lap sites. All sites are well approximated without any redness, edema or drainage noted. Instructed to call when ready to DC so staff may assist her out.
--- NOTE | 2020-12-24 13:01 | NUR ---
SOME ABDOMINAL PAIN THIS AM BUT PATIENT IS HAVING A HEADACHE AND RATES THAT PAIN HIGHER. SEE EMAR. ASSESSMENT COMPLETED. AM MEDICATIONS GIVEN BY ENVIRONMENTAL PROTECTION FORESTER AND INSTRUCTOR THIS AM.
--- NOTE | 2020-12-29 17:04 | PATH ---
[facility] [address] [facility] [place], [place] [address] Signed SPECIMEN(S): A GALLBLADDER WITH STONES SPECIMEN SOURCE: A. GALLBLADDER WITH STONES CLINICAL HISTORY: Acute or chronic cholecystitis. FINAL PATHOLOGIC DIAGNOSIS: Gallbladder, cholecystectomy: - Chronic cholecystitis with cholesterolosis. - Cholelithiasis. NAL:cml:C2NR MICROSCOPIC EXAMINATION: Histologic sections of all submitted blocks are examined by light microscopy. These findings, together with the gross examination, support the pathologic diagnosis. GROSS DESCRIPTION: The specimen, labeled "CS," and designated on the requisition "gallbladder with stones," is received in formalin and consists of Specimen: Previously opened gallbladder. Dimensions: 6.7 x 3.0 x 1.0 cm. Serosa: [place] to green-schilling. Cystic Duct: Unobstructed, inked black and shaved. Calculi: Multiple yellow to brown-schilling calculi (2.5 x 1.0 x 0.7 cm in aggregate). Mucosa: Brown and velvety with yellow stippling. Wall thickness: 0.4 cm. Lymph node: No pericystic lymph nodes are grossly identified. Additional: None. Cardiology Teacher sections are submitted in cassette (A1). AC (under the direct supervision of a pathologist) The Gross Description was prepared using a voice recognition system. The report was reviewed for accuracy; however, sound-alike word errors, addition and/or deletions may occur. If there is any question about this report, please contact Client Services. PERFORMING LABORATORY: The technical component was performed by [employer], Bessy Yang, PATIENT NAME: LUCA CASTAÑEDA PATHOLOGY DATE OF : 65 REPORT #: [id number] PHYSICIAN: JUANPABLO SPARKS PCP: SUZANNA JACOB PAC REPORT IS CONFIDENTIAL AND NOT TO BE RELEASED WITHOUT AUTHORIZATION [facility] [address] [place], [place] [address] [place] [address] (Vice Admiral: Daja Chua MD; CLIA# [id number]). Professional interpretation was performed by [facility], [address] [address] (CLIA# [id number]). Diagnostician: Mariah Manzo MD Pathologist Electronically Signed 12/29/2020 Copies: ~ PATIENT NAME: LCUA CASTAÑEDA PATHOLOGY DATE OF : 65 REPORT #: [id number] PHYSICIAN: JUANPABLO SPARKS PCP: SUZANNA JACOB PAC REPORT IS CONFIDENTIAL AND NOT TO BE RELEASED WITHOUT AUTHORIZATION
== END 2020-12-24 13:00 | disposition home or self-care (01) ==
LOC: ED 16:05 → MS 16:07
PROVIDERS: ADMIT Colon & Rectal Surgery; ATTEND Colon & Rectal Surgery
PROC: BF10YZZ Fluoroscopy of Bile Ducts using Other Contrast (ICD-10-PCS; 2020-12-23)
PROC: 0FT44ZZ Resection of Gallbladder, Percutaneous Endoscopic Approach (ICD-10-PCS; principal; 2020-12-23 12:45)
DX: K80.12 Calculus of gallbladder with acute and chronic cholecystitis without obstruction (principal); E66.01 Morbid (severe) obesity due to excess calories; G43.909 Migraine, unspecified, not intractable, without status migrainosus; J32.9 Chronic sinusitis, unspecified; E88.81 Metabolic syndrome and other insulin resistance; Z86.718 Personal history of other venous thrombosis and embolism; Z91.018 Allergy to other foods; Z20.822 Contact with and (suspected) exposure to COVID-19; Z90.49 Acquired absence of other specified parts of digestive tract; Z68.38 Body mass index [BMI] 38.0-38.9, adult; Z87.891 Personal history of nicotine dependence
CPT/HCPCS: 00790; 74300; 76705; 80053; 81001; 83690; 85025; 96374; 96375; 99285-25; C9113; C9803; G0378; J0131; J0330; J0696; J1100; J1170; J1650; J1885; J2250; J2270; J2405; J2550; J2704; J2765; J3010; J3480; J7030; J7121; Q9967; U0003

== ENCOUNTER 2022-05-26 09:45 | Day surgery (SDC) | payer OTHER ==
[~2022-05-26] VITALS: Ht 162.6 cm; Wt 105.5 kg
--- NOTE | ~2022-05-26 | OR ---
[facility] [address] [facility] [place], [place] [address] Draft DATE OF OPERATION: 05/26/2022 SURGEON: Acosta York MD PREOPERATIVE DIAGNOSIS: Colon screening. POSTOPERATIVE DIAGNOSIS: Sigmoid diverticulosis. PROCEDURE: Total colonoscopy to cecum. ANESTHESIA: Intravenous sedation; fentanyl 100 mcg and versed 6 mg. INDICATION: This 57-year-old white woman is a patient of BRANDT King. She has been referred for screening colonoscopy. She does have a history of diarrhea alternating with constipation, which is no longer an issue for her currently. She understands the risk of screening colonoscopy including but not limited to bleeding, infection, and perforation. FINDINGS: The prep was excellent. Complete colonoscopy was undertaken to the cecum without question. She had scattered diverticula of the sigmoid and left colon, but no sign of polyps, colitis, or other abnormality. DESCRIPTION OF PROCEDURE: The patient was brought to the endoscopy suite and placed in the lateral decubitus position, given intravenous sedation to the point of slurred speech and nystagmus. Digital rectal examination was normal. An Olympus video colonoscope was passed in the rectum and manipulated throughout the colon ultimately intubating the cecum itself. The ileocecal valve and appendiceal orifice were normal. The scope was withdrawn and examination throughout showed no sign of polyps or colitis, only scattered diverticulitis in the sigmoid and left colon. Retroflexed view was normal as well. The scope was removed and the patient was taken to the recovery room in good condition. CONCLUDING DIAGNOSIS: Diverticular changes sigmoid, otherwise normal. PATIENT NAME: LUCA CASTAÑEDA OPERATIVE REPORT DATE OF : 65 REPORT #: [id number] PHYSICIAN: ACOSTA YORK MD PCP: NOAH SKINNER PAC REPORT IS CONFIDENTIAL AND NOT TO BE RELEASED WITHOUT AUTHORIZATION [address] [place], [place] [address] Draft PLAN: Recommend repeat colonoscopy in 10 years, sooner if clinically indicated. Recommend also high-fiber diet. MD NATHAN Ruiz/MARGOT /[id number] cc: BRANDT King Copies: ~ PATIENT NAME: LUCA CASTAÑEDA OPERATIVE REPORT DATE OF : 65 REPORT #: [id number] PHYSICIAN: ACOSTA YORK MD PCP: NOAH SKINNER PAC REPORT IS CONFIDENTIAL AND NOT TO BE RELEASED WITHOUT AUTHORIZATION
[~2022-05-26 09:45] MED LIST changes: +ATORVASTATIN CA20 MG PO; +BIOTIN1 M1 PO; +BUPROPION XL150 MG PO; +ESCITALOPRAM OX20 MG PO; +FLOVENT HFA10.6 GM INH; +FLUOXETINE HCL20 MG PO; +HYDROXYZINE HCL25 MG PO; +SINGULAIR10 MG PO; +SUDOGEST30 MG PO
[2022-05-26] MEDS ORDERED: CLARITIN10 MG PO (10:15)
--- NOTE | 2022-05-26 11:46 | NUR ---
05/26/22 1146 Alicia Xiao PT TO PACU ALERT AND AWAKE OFF AND ON, DENIES PAIN AND NAUSEA.
== END 2022-05-26 12:15 | disposition home or self-care (01) ==
LOC: DS 09:45
PROVIDERS: ATTEND Surgery
PROC: 0DJD8ZZ Inspection of Lower Intestinal Tract, Via Natural or Artificial Opening Endoscopic (ICD-10-PCS; principal; 2022-05-26 11:00)
DX: Z12.11 Encounter for screening for malignant neoplasm of colon (principal); K57.30 Diverticulosis of large intestine without perforation or abscess without bleeding; R19.7 Diarrhea, unspecified; E66.01 Morbid (severe) obesity due to excess calories; D25.9 Leiomyoma of uterus, unspecified; Z90.49 Acquired absence of other specified parts of digestive tract; Z86.718 Personal history of other venous thrombosis and embolism
CPT/HCPCS: 99153; G0500; J2250; J3010; J7121

== ENCOUNTER 2024-11-30 13:51 | Emergency (ER) | payer OTHER ==
[~2024-11-30] VITALS: Ht 162.6 cm; Wt 103.0 kg
[~2024-11-30 13:51] MED LIST changes: +CLARITIN10 MG PO; +OMEPRAZOLE20 MG PO; +ZYRTEC10 MG PO
[2024-11-30 16:23] LABS: BASOPHILS 0.7 % (0-2); EOSINOPHILS 2.6 % (0-6); HEMATOCRIT 39.4 % (35.0-50.0); HEMOGLOBIN 13.4 g/dL (12.0-18.0); LYMPHOCYTES 44.3 % (24-44); MCH 28.1 (27-36); MCV 82.6 fl (81-99); MONOCYTES 9.7 % (0-12); NEUTROPHILS 42.7 % (39-80); PLATELET COUNT 232 K/uL (140-440); RBC 4.77 M/ul (4.3-5.7); RDW 15.1 (10.5-15.0)
[2024-11-30 16:32] LABS: ALBUMIN 3.6 g/dL (3.4-5.0); ALBUMIN/GLOBULIN RATIO 0.88 (1.1-2.4); ANION GAP 11.8 (7-21); BILIRUBIN, TOTAL 0.2 mg/dL (0.2-1.0); BUN/CREATININE RATIO 14.7 (6.0-28.6); CALCIUM 9.2 mg/dL (8.5-10.1); CREATININE, SERUM 0.68 mg/dL (0.55-1.02); POTASSIUM 3.8 mmol/L (3.5-5.1); PROTEIN, TOTAL 7.7 g/dL (6.4-8.2)
[2024-11-30 19:14] VITALS: BP 133/72
== END 2024-11-30 19:14 | disposition home or self-care (01) ==
LOC: ED 13:51
PROVIDERS: Emergency Medicine
DX: I82.512 Chronic embolism and thrombosis of left femoral vein (principal); I82.532 Chronic embolism and thrombosis of left popliteal vein; Z87.891 Personal history of nicotine dependence; Z79.899 Other long term (current) drug therapy
CPT/HCPCS: 36415; 80053; 85025; 93971; 99284-25

== ENCOUNTER 2025-02-08 11:29 | Emergency (ER) | payer OTHER ==
[~2025-02-08] VITALS: Ht 162.6 cm; Wt 103.4 kg
[2025-02-08] MEDS ORDERED: ELIQUIS5 MG PO (11:38)
[2025-02-08 11:53] LABS: BASOPHILS 0.8 % (0.1-1.2); EOSINOPHILS 4.2 % (0.7-5.8); HEMATOCRIT 39.2 % (34.1-44.9); HEMOGLOBIN 12.7 g/dL (11.2-15.7); LYMPHOCYTES 46.4 % (19.3-51.7); MCH 27.3 PG (25.6-32.2); MCHC 32.4 g/dL (32.2-35.5); MCV 84.1 fL (79.4-94.8); MONOCYTES 8.1 % (4.7-12.5); NEUTROPHILS 40.5 % (34.0-71.1); PLATELET COUNT 247 K/uL (182-369); RBC 4.66 M/uL (3.93-5.22)
[2025-02-08] MEDS ORDERED: ASPIRIN 81 MG CHEW PO ONE (12:00)
[2025-02-08 12:08] LABS: ALBUMIN 3.2 g/dL (3.4-5.0); ALBUMIN/GLOBULIN RATIO 0.78 (1.1-2.4); ANION GAP 11.8 (7-21); BILIRUBIN, TOTAL 0.2 mg/dL (0.2-1.0); BUN/CREATININE RATIO 14.81 (6.0-28.6); CREATININE, SERUM 0.81 mg/dL (0.55-1.02); MAGNESIUM 1.8 mg/dL (1.8-2.4); POTASSIUM 3.8 mmol/L (3.5-5.1); PROTEIN, TOTAL 7.3 g/dL (6.4-8.2)
[2025-02-08] MEDS ORDERED: LIDOCAINE 2% (VISCOUS) HCL 15 ML UDC MT ONE (12:45)
[2025-02-08] MEDS ORDERED: LIDOCAINE & ANTACID 35 ML BTL PO ONE (12:45)
[2025-02-08] MEDS ORDERED: FAMOTIDINE 20 MG/ 2 ML VIAL IV ONE (12:45)
[2025-02-08 14:30] VITALS: BP 134/64
--- NOTE | 2025-02-08 15:39 | EKG ---
[facility] [address] [facility] [place] [address] Signed Normal sinus rhythm Normal ECG When compared with ECG of 21-MAR-2023 15:05, No significant change was found Confirmed by Matt Martin DO ([id number]) on 02/08/2025 3:38:54 PM Electronically Signed By: MATT MARTIN DO 02/08/25 1539 PATIENT NAME: LUCA CASTAÑEDA Electrocardiogram DATE OF : 65 PHYSICIAN: MATT MARTIN DO REPORT #: [id number] REPORT IS CONFIDENTIAL AND NOT TO BE RELEASED WITHOUT AUTHORIZATION
== END 2025-02-08 14:30 | disposition home or self-care (01) ==
LOC: ED 11:29
PROVIDERS: Emergency Medicine
DX: R07.9 Chest pain, unspecified (principal); G43.909 Migraine, unspecified, not intractable, without status migrainosus; Z79.899 Other long term (current) drug therapy; Z87.891 Personal history of nicotine dependence
CPT/HCPCS: 36415; 71045; 80053; 83735; 84484; 85025; 93005; 93010; 96374; 99285-25; A9270

== ENCOUNTER 2025-04-15 13:41 | Emergency (ER) | payer OTHER ==
[~2025-04-15] VITALS: Ht 162.6 cm; Wt 98.2 kg
[~2025-04-15 13:41] MED LIST changes: +ELIQUIS5 MG PO
[2025-04-15] MEDS ORDERED: OMEPRAZOLE40 MG PO (13:58)
[2025-04-15] MEDS ORDERED: ACETAMINOPHEN 500 MG TAB PO ONE (14:15)
[2025-04-15 14:32] VITALS: BP 146/70
== END 2025-04-15 14:32 | disposition home or self-care (01) ==
LOC: ED 13:41
DX: S63.502A Unspecified sprain of left wrist, initial encounter (principal); Z87.891 Personal history of nicotine dependence; Z79.01 Long term (current) use of anticoagulants; Z79.2 Long term (current) use of antibiotics; Z79.899 Other long term (current) drug therapy; W18.30XA Fall on same level, unspecified, initial encounter
CPT/HCPCS: 73110; 99283; A9270